=== PATIENT | male | born 1970 | race Caucasian/White ===

== ENCOUNTER 2017-04-28 23:51 | Emergency (ER) | payer BC ==
[~2017-04-28] VITALS: Ht 188 cm; Wt 105.3 kg
[~2017-04-28 23:51] MED LIST: ASPIRIN81 M1; DEPAKOTE250 MG PO; NEXIUM40 MG PO; OPANA ER20 MG; SEROQUEL200 MG PO
[2017-04-28 23:56] VITALS: BP 167/100
[2017-04-29 00:24] LABS: HEMATOCRIT 43.9 % (38.0-50.0); MCH 31.9 PG (29.0-34.0); MCHC 34.4 G/DL (30.0-36.0); MCV 92.8 FL (86-99); MEAN PLAT.VOLUME 11.3 uM^3 (9.0-12.4); PLATELET COUNT 194 K/uL (156-360); RBC DIS.WIDTH-CV 11.7 % (11.8-14.6); RBC DIS.WIDTH-SD 40.3 % (39-53); RED BLOOD COUNT 4.73 M/uL (4.00-5.50); WHITE BLOOD COUNT 7.1 K/uL (4.1-10.2)
[2017-04-29 00:33] LABS: CHLORIDE 108 mEq/L (99-109); POTASSIUM 4.1 mEq/L (3.7-5.4); SODIUM 139 mEq/L (136-147)
[2017-04-29 00:35] LABS: GLUCOSE 84 mg/dL (70-99)
[2017-04-29 00:37] LABS: ANION GAP 7 MEQ/L (2-14)
[2017-04-29 00:39] LABS: GFR ESTIMATE (CALCULATED) > 59 mL/min/
[2017-04-29 00:40] LABS: UREA NITROGEN (BUN) 14 mg/dL (9-23)
[2017-04-29 00:44] LABS: TROP-I INTERPRETATION NEGATIVE; TROPONIN-I < 0.01 ng/mL (0.0-0.30)
== END 2017-04-29 02:02 | disposition left against medical advice (07) ==
LOC: EME 23:51
DX: R07.9 Chest pain, unspecified (principal); K08.89 Other specified disorders of teeth and supporting structures; Z98.818 Other dental procedure status; Z53.21 Procedure and treatment not carried out due to patient leaving prior to being seen by health care provider
CPT/HCPCS: 71020; 80048; 84484; 85027; 93005